=== PATIENT | female | born 1940 | race Caucasian/White ===

== ENCOUNTER 2016-09-16 10:16 | Inpatient (IN) | payer OTHER ==
[2016-09-16] VITALS (30 sets, daily range): BP systolic 102–141; BP diastolic 64–127
[~2016-09-16] VITALS: Ht 167.6 cm; Wt 94.9 kg
--- NOTE | ~2016-09-16 | DEA ---
[facility] [place] [address] SUMMARY Name: COOPER GARCIA Room #: 247-P [facility] IN M.R.#: [id number] Admission: 09/16/16 Attend Phys: Yoan Melendez DO Discharge: 09/18/16 Date of : 42 Report #: [id number] THIS REPORT FOR: //name// CC: Yoan Mazariegos Binh Morales DATE OF SERVICE: 09/18/2016 DATE OF : 09/18/2016. CAUSE OF : Respiratory arrest. HISTORY OF PRESENT ILLNESS: This is an elderly female who came to us as a transfer from an [facility] hospital. The patient had been at another hospital where she was being treated for pneumonia. The patient had influenza type A and possibly bacterial pneumonia as well. She was transferred to this hospital for further supportive care. When the patient got here, it was quite clear that she was in a great deal of distress. The patient was in renal failure as well and she was septic. The patient does have a history of COPD, which was complicating her issues as well. The patient had a medical directive which she said she did not want to have any lifesaving measures done. The patient was on BIPAP, which was not sufficient for supporting her care. The patient needed intubation, which was prohibited by her advanced directive. The patient was kept sedated. She was kept on BiPAP and the family later was ready for her to be withdrawn from care. She was given comfort measures and allowed to naturally in the ICU. Comorbidities included acute renal failure, acute kidney injury on chronic kidney disease, hypertension and diabetes mellitus type 2. <ELECTRONICALLY SIGNED> By: Mike Ahn DO 09/29/16 1827 1418 [id number] Mike Ahn DO /nt
--- NOTE | ~2016-09-16 | HC ---
[facility] [place] [address] CONSULTATION Name: COOPER GARCIA Room #: 247-P ADM IN M.R.#: [id number] Admission: 09/16/16 Attend Phys: Yoan Melendez DO Discharge: Date of : 42 Report #: [id number] THIS REPORT FOR: //name// CC: Yoan Stubbs PRIMARY CARE PHYSICIAN: Dr. Harrison. REFERRAL PHYSICIAN: Dr. Archie Hoffman. REASON FOR REFERRAL: Acute respiratory failure. HISTORY OF PRESENT ILLNESS: The patient is a 76-year-old white female who was transferred from [facility] for severe respiratory distress. A pulmonary consultation was requested. I do not have the records from the referring center. However, according to the records, patient was found to be positive for influenza A. With worsening respiratory status, the patient was transferred for further evaluation and management. The patient states that she had been sick recently. Otherwise, I am not able to obtain much history as patient is on a noninvasive positive pressure ventilation. A CT chest was performed earlier today, this shows bilateral multilobar infiltrates. PAST MEDICAL HISTORY: Is notable for history of COPD, diabetes mellitus type 2, hypertension, hypothyroidism, history of breast cancer, uterine cancer, chronic anemia, neuropathy, gastroesophageal reflux disease, chronic kidney disease with a baseline creatinine of 1.4, osteoarthritis and depression. PAST SURGICAL HISTORY: Includes lumpectomy, hysterectomy, appendectomy, cholecystectomy, history of multiple stones removal in the past. ALLERGIES: PENICILLIN, CODEINE and TRAMADOL, which causes dizziness and disorientation. MEDICATION: Lists are reviewed. Is in the MAR. FAMILY HISTORY: Noncontributory. SOCIAL HISTORY: The patient is a resident at the [facility], a long-term care unit. There is no history of recent tobacco or alcohol use. The patient had [facility] [address] [place] [address] CONSULTATION Name: COOPER GARCIA Room #: 247-P [facility] IN ..#: [id number] Admission: 09/16/16 Attend Phys: Yoan Melendez DO Discharge: Date of : 42 Report #: [id number] been utilizing a walker for ambulation up till May 2015 when she was last hospitalized at [facility]. REVIEW OF SYSTEMS: Is otherwise deferred as the patient is in acute respiratory distress. PHYSICAL EXAMINATION: GENERAL: She is alert, oriented in moderate distress. She appears tachypneic. Saturation 98%, respiratory rate is in 20s. VITAL SIGNS: Blood pressure is 110/60, pulse is around 80 beats per minute. HEENT: Normocephalic, atraumatic. NECK: Supple without any lymphadenopathy or thyromegaly. CHEST: Breath sounds are decreased bilaterally with coarse bilateral crackles. There is increase in upper airways breath sounds. Mild expiratory wheezes are noted. CARDIOVASCULAR: Heart sounds are distant. No obvious murmurs or gallop. Pulses are 2+/4+ bilaterally. BREASTS: Exam deferred. ABDOMEN: Obese, soft, nontender, no organomegaly or masses felt. RECTAL: Deferred. GENITOURINARY: Deferred. EXTREMITIES: There is no edema, cyanosis or clubbing. LABORATORY DATA: CT chest as mentioned above showing multilobar consolidation bilaterally. Procalcitonin is 0.7. Troponin is normal. Electrolytes: Sodium 137, potassium 4.2, chloride 104, CO2 is 20, BUN is 83, creatinine is 3.1, glucose is 98. SGOT is 93. Alkaline phosphatase is 136. WBC 28,900, hemoglobin is 8.9, platelets are normal without significant bandemia. Albumin 2.0. IMPRESSION: 1. Acute respiratory failure in this 76-year-old white female. Her CT chest revealed multilobar infiltrates. She was felt to be positive for influenza A recently. The patient appears as severe pneumonia, suspect either influenza pneumonia versus bacterial process. 2. Chronic obstructive pulmonary disease with presumed exacerbation. 3. Acute kidney injury/chronic kidney disease. Electrolytes shows some evidence of early onset metabolic acidosis. 4. Severe sepsis. 5. Marked leukocytosis of interest minimal bandemia. 6. Protein-calorie malnutrition, severe with an albumin of 2.0. 7. Diabetes mellitus type 2. 8. Hypertension. 9. Hypothyroidism. 10. Depression. [address] [address] CONSULTATION Name: COOPER GARCIA Room #: 247-P [facility] IN M.R.#: [id number] Admission: 09/16/16 Attend Phys: Yoan Melendez DO Discharge: Date of : 42 Report #: [id number] 11. Debility. RECOMMENDATION AND DISCUSSION: We will keep O2 saturation 92%, we will try noninvasive positive pressure ventilation with BiPAP as tolerated. Corticosteroids and bronchodilators will be started. Broad spectrum antibiotics has been started. This I will defer to Infectious Disease. DVT and GI prophylaxis will be addressed. Cultures have been ordered. The patient is at risk for developing worsening respiratory failure given degree of illness. Hopefully BiPAP would help. Thank you for the consultation. <ELECTRONICALLY SIGNED> By: You Matos MD 09/17/16 1308 1611 [id number] You Matos MD /nt
--- NOTE | ~2016-09-16 | HC ---
[facility] [place] [address] CONSULTATION Name: COOPER GARCIA Room #: 247-P ADM IN M.R.#: [id number] Admission: 09/16/16 Attend Phys: Yoan Melendez DO Discharge: Date of : 42 Report #: [id number] THIS REPORT FOR: //name// CC: Archie Morales REASON FOR CONSULTATION: Evaluate pneumonia, respiratory failure. HISTORY OF PRESENT ILLNESS: The patient is a 76-year-old residential resident who presented on 09/14/2016, to [facility] with respiratory distress, chills, and fever. There was no nausea, vomiting, or diarrhea. Initial white count was 26,000 with a right lung infiltrate on chest x-ray, screening identified influenza B. Treated with ceftriaxone, Levaquin, and Tamiflu, but has not improved. Now transferred to [facility] for further care. She remains short of breath. On high flow oxygen with a nonrebreather. She has had nonproductive cough. She was a poor historian. She had an indwelling Polanco catheter. There has been no travel. No history of tuberculosis. ALLERGIES: PENICILLIN, CODEINE, and TRAMADOL. MEDICATIONS: As noted on her JUL, now including Zyvox and meropenem. PAST MEDICAL HISTORY: Diabetes, hyperlipidemia, breast cancer, on tamoxifen; stroke, dementia, COPD, gastroesophageal reflux, pneumonia, chronic kidney disease, urolithiasis, anxiety, depression, hysterectomy, small-bowel obstruction, cholecystectomy, and appendectomy. FAMILY HISTORY: Noncontributory. SOCIAL HISTORY: Otherwise, noncontributory. REVIEW OF SYSTEMS: Negative other than as described above with no report of chest pain, abdominal pain, diarrhea, rash, or headache. PHYSICAL EXAMINATION: VITAL SIGNS: Afebrile, hemodynamically stable. She was short of breath and tachypneic with oxygen mask nonrebreather. EXTREMITIES: 2+ lower extremity edema. HEENT: Unremarkable. Had an eschar over her nares on the right side. Mouth, otherwise unremarkable other than dry. LUNGS: Coarse breath sounds in the bases bilaterally, mostly on the right. HEART: Regular, without murmur. ABDOMEN: Soft, nontender, no hepatosplenomegaly or mass. NEUROLOGIC: Nonfocal. IV site unremarkable. LABORATORY STUDIES: Blood cultures from [facility] negative to date. [address] [address] CONSULTATION Name: COOPER GARCIA Room #: 247-P [facility] IN M.R.#: [id number] Admission: 09/16/16 Attend Phys: Yoan Melendez DO Discharge: Date of : 41 Report #: [id number] Influenza antigen positive for . Urinalysis had 3+ protein. Here, her hemoglobin is 8.9, WBC 28.8 and platelet count 206,000. Previous chest x-ray had shown right lung infiltrate with diffuse interstitial infiltrates. The right lung infiltrate was perihilar in lower lobe. IMPRESSION: A 76-year-old with respiratory failure, on high flow oxygen following influenza B infection and I suspect secondary bacterial infection. In this setting, could potentially have MRSA. Also, would be concerned about a component of congestive heart failure. Recommend continuing IV antibiotic therapy and we will continue with Tamiflu. She will have followup chest x-ray, CT scan obtained. Also, check echocardiogram and BNP. <ELECTRONICALLY SIGNED> By: Rafael Catherine MD 09/17/16 1640 1419 [id number] Rafael Catherine MD /nt
--- NOTE | ~2016-09-16 | HC ---
[facility] [place] [address] CONSULTATION Name: COOPER GARCIA Room #: [facility] IN M.R.#: [id number] Admission: 09/16/16 Attend Phys: Yoan Melendez DO Discharge: 09/18/16 Date of : 42 Report #: [id number] THIS REPORT FOR: //name// CC: Archie Morales DATE OF SERVICE: 09/16/2016 ATTENDING PHYSICIAN: Dr. Navarro. REASON FOR CONSULTATION: Acute on chronic kidney disease. HISTORY OF PRESENT ILLNESS: A 76-year-old patient with known dementia on an Alzheimer's Unit and extended care facility, was admitted with cough and shortness of breath, progressive weakness, and was hospitalized for 2 days at [facility]. There she had worsening pulmonary infiltrates, shortness of breath, and rising creatinine and was transferred to [facility] where she was seen in consultation in the ICU. She has known CKD with a creatinine at this hospital last year of 1.6, longstanding diabetes and apparent proteinuria. Her creatinine has risen to 3.3 at [facility], 3.1 at our hospital this afternoon with a BUN of 83 and we are seeing her in consultation. PAST MEDICAL HISTORY: Taken extensively from the old medical chart, we also interviewed the patient who was of some help but so short of breath that she was having difficulty giving cogent answers and also apparently does have a history of cognitive impairment. She has a prior history of breast cancer, previous appendectomy, cholecystectomy, and hysterectomy, COPD, longstanding diabetes mellitus, Alzheimer's type dementia, previous CVA with seizures, history of anemia, and hypothyroidism. MEDICATIONS: Prior to admission were extensive and included Zanaflex b.i.d., albuterol inhaler, Synthroid 75 mcg daily, Keppra 250 mg b.i.d., meclizine p.r.n., amlodipine 5 mg daily, Flomax 0.4 mg daily, vitamin D3 5000 units daily, Plavix 75 mg daily, Levemir insulin, Cymbalta 90 mg total daily, famotidine 20 mg daily, allopurinol 100 mg daily, clonidine 0.1 mg once a day, NovoLog sliding scale insulin, naproxen 220 mg 2 tablets twice daily, alendronate 70 mg weekly, tamoxifen 20 mg daily, metoprolol tartrate 50 mg b.i.d., iron, Lipitor 10 mg daily, Milk of Magnesia p.r.n. FAMILY HISTORY: Taken from the previous charts, noncontributory. SOCIAL HISTORY: Now with apparent chronic cognitive impairment on an Alzheimer's Unit. No substantial [place] [address] CONSULTATION Name: COOPER GARCIA Room #: 247-P [facility] IN M.R.#: [id number] Admission: 09/16/16 Attend Phys: Yoan Melendez DO Discharge: 09/18/16 Date of : 42 Report #: [id number] REVIEW OF SYSTEMS: Cannot be taken due to the patient's difficulty with giving a history on her cognitive difficulties. PHYSICAL EXAMINATION: GENERAL: This is a quite tachypneic ill-appearing patient seen in the ICU. SKIN: Unremarkable. SKELETAL: Somewhat obese, well-developed, well-nourished. EYES: Extraocular movements are full. Vision is intact. No scleral icterus. Hearing is intact. Mucous membranes dry. NECK: Veins are flat. CHEST: Shows diffuse wheezes and rhonchi. HEART: Regular but distant. ABDOMEN: Somewhat quiet, nontender. EXTREMITIES: Show 1+ generalized peripheral edema. NEUROLOGIC: Grossly intact, moving all extremities. LABORATORY DATA: Sodium 137, potassium 4.2, chloride ____, bicarbonate 20, creatinine 3.1, BUN 83, calcium is 6.5. AST 93, ALT 52, albumin 2.0. White blood count is 28.9 with a hemoglobin of 8.9, platelets of 206, influenza B positive. ASSESSMENT AND PLAN: 1. Diffuse patchy pneumonia with positive influenza B. She has been treated with aggressive antibiotics for secondary pneumonia. She has a very bad case of influenza B. She is in respiratory distress and likely will need intubation, but she is also a DNR. I am not sure if that is going to be included in the management given her underlying dementia and this will certainly have to be discussed with her family, which are the primary DPOAs. 2. Acute on chronic kidney disease. She obviously has underlying chronic kidney disease, probably diabetic nephropathy, although that ____. She did have a sonogram, which showed bilateral nephrolithiasis when she was here last year. In any event, she likely would benefit from some IV fluids and I am going to give those and add a little bicarbonate there as well. 3. Underlying dementia. 4. 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 5. History of cerebrovascular accident. 6. History of seizure disorder. 7. Previous history of breast cancer with possible osseous metastasis on x-ray. <ELECTRONICALLY SIGNED> By: Manuel Lauren MD 09/26/16 1114 1754 0311 Manuel Lauren MD /nt
--- NOTE | ~2016-09-16 | 2DMMODE ---
[facility] [address] [place] [address] 2 D/M-MODE ECHOCARDIOGRAM Name: COOPER GARCIA Room #: 247-P [facility] IN M.R.#: [id number] Admission: 09/16/16 Attend Phys: Yoan Melendez, Discharge: Date of : 42 Date of Service: 09/17/16 1231 Report #: [id number] THIS REPORT FOR: //name// APPROVED REPORT Study performed: 09/17/2016 07:15:42 EXAM: Comprehensive 2D, Doppler, and color-flow Echocardiogram Patient Location: Bedside Room #: 247 Blood Pressure: 143/76 mmHg HR: 98 bpm Other Information Study Quality: FairPoor Technically limited study due to Poor patient compliance, restricted mobility, obesity. Not all measurements taken. Patient in ICU on CPap. Indications Bilateral infiltrates, respiratory failure. Hx: DM, HTN, HLP, COPD, CVA 2D Dimensions RVDd: 28.31 mm LVEF(%): 55.75 (>50%) IVSd: 12.66 (7-11mm) LVDd: 42.91 mm PWd: 12.70 (7-11mm) LVDs: 30.54 (25-40mm) Aortic Root: 33.29 mm Clark's LVEF: 55.75 % Volumes Left Atrial Volume (Systole) Single Plane 4CH: 50.08 mL Single Plane 2CH: 55.45 mL LA ESV Index: 29.00 mL/m2 Aortic Valve AoV Peak Guillermo.: 1.92 m/s AO Peak Gr.: 14.78 mmHg Mitral Valve [facility] [address] [place] [address] 2 D/M-MODE ECHOCARDIOGRAM Name: COOPER GARCIA Room #: 247-P [facility] IN ..#: [id number] Admission: 09/16/16 Attend Phys: Yoan Melendez, Discharge: Date of : 42 Date of Service: 09/17/16 1231 Report #: [id number] E/A Ratio: 0.8 MV Decel. Time: 141.04 ms MV E Max Guillermo.: 1.24 m/s MV A Guillermo.: 1.52 m/s MV PHT: 40.90 ms Pulmonary Valve PV Peak Guillermo.: 1.10 m/s PV Peak Gr.: 4.88 mmHg Tricuspid Valve TR Peak Guillermo.: 2.70 m/s RAP Estimate: 5.00 mmHg TR Peak Gr.: 29.27 mmHg RVSP: 34.00 mmHg Left Ventricle The left ventricle is normal size. Mild concentric left ventricular hypertrophy. Left ventricular systolic function appears hyperdynamic. Cannot rule out CLARISSE with mild LVOT peak gradient of 31mmHg. LVEF is 65-70%. Grade I - abnormal relaxation pattern. Right Ventricle The right ventricle appears normal size. The right ventricular systolic function appears normal. Atria The left atrium size is normal. The right atrium size is normal. Aortic Valve The aortic valve is not well visualized. No aortic regurgitation is present. There is no aortic valvular stenosis. Mitral Valve Moderate mitral annular calcification. Mild mitral regurgitation. Tricuspid Valve The tricuspid valve is normal in structure. There is mild tricuspid regurgitation. The right atrial pressure is estimated at 5 mmHg. There is mild pulmonary hypertension with an estimated PAP of 34mmHg. Pulmonic Valve Pulmonic valve is not well visualized. Great Vessels The aortic root is normal in size. Ascending aorta is not well [facility] [address] [place] [address] 2 D/M-MODE ECHOCARDIOGRAM Name: COOPER GARCIA Room #: 247-P [facility] IN M.R.#: [id number] Admission: 09/16/16 Attend Phys: Yoan Melendez, Discharge: Date of : 42 Date of Service: 09/17/16 1231 Report #: [id number] visualized. IVC is normal in size and collapses >50% with inspiration. Pericardium There is no pericardial effusion. <Conclusion> The left ventricle is normal size. LVEF is 65-70%. The aortic valve is not well visualized. Moderate mitral annular calcification. Mild mitral regurgitation. The tricuspid valve is normal in structure. There is mild tricuspid regurgitation. The right atrial pressure is estimated at 5 mmHg. There is mild pulmonary hypertension with an estimated PAP of 34mmHg. <ELECTRONICALLY SIGNED> By: Farooq Maynard MD 09/17/16 1231 1231 1231 Farooq Maynard MD /INF
[~2016-09-16 10:16] MED LIST: ALENDRONATE SOD70 MG PO; ALEVE220 MG PO; ALLOPURINOL 10100 M1 PO; ATORVASTATIN CA40 MG PO; CENTRUM SILVER1 EAC4 PO; COZAAR 50 MG TA50 M2 PO; CYMBALTA60 MG PO; DUONEB 2.5-0.5 M3 ML INH; FLOMAX0.4 MG PO; IRON325 PO; KEPPRA 500 MG500 M1 PO; LEVAQUIN 500 M500 M2 PO; LEVEMIR SUBQ; LEVOTHYROXINE0.05 MG PO; LIQUITUSS200 MG/5 M PO; LOPRESSOR50 PO; NOLVADEX20 MG PO; NOVOLOG100 UNIT/1 SUBQ; PLAVIX 75 MG TA75 M1 PO; PROTONIX40 M1 PO; ROBITUSSIN100 MG/53 PO; TRADJENTA5 MG PO; TYLENOL325 MG PO; VITAMIN D3400 UNIT PO
[2016-09-16 13:38] LABS: HEMATOCRIT 26.7 % (37.0-47.0); HEMOGLOBIN 8.9 gm/dL (12.0-15.0); MCH 29.2 pg (26.0-34.0); MCHC 33.4 g/dL (28.0-37.0); MCV 87.2 fL (80.0-100.0); PLATELET COUNT 206 thou/uL (150-400); RBC 3.06 mil/uL (4.20-5.00); RDW 15.3 % (10.5-14.5); WBC 28.9 thou/uL (4.0-11.0)
[2016-09-16 14:14] LABS: CALCIUM 6.5 mg/dL (8.5-10.1); CREATININE 3.1 mg/dL (0.6-1.0); POTASSIUM 4.2 mmol/L (3.5-5.1); TOTAL BILIRUBIN 0.4 mg/dL (<0.1-1.0); TOTAL PROTEIN 6.5 g/dL (6.4-8.2)
[2016-09-16 14:49] LABS: MANUAL DIFF YES
[2016-09-16 15:15] LABS: ABSOLUTE NEUTROPHILS 25.7 thou/uL (1.4-8.2); PLATELET ESTIMATE NORMAL; TOTAL CELL COUNT 100
[2016-09-16 17:32] LABS: ABG SAMPLE TYPE ARTERIAL; BE(vivo) -8.2 mmol/L (-2 to +3); LACTATE 1.45 mmol/L (0.5-2.0); O2Hb 85.1 % (92.0-98.0); PCO2 33.6 mmHg (35.0-45.0); sO2 84.3 % (92.0-98.0)
[2016-09-16 17:33] LABS: PO2 51.6 mmHg (80.0-100.0); STICK SITE R.RADIAL; pH 7.322 (7.360-7.450)
[2016-09-17] VITALS (23 sets, daily range): BP systolic 102–147; BP diastolic 51–95
[2016-09-17 04:05] LABS: HEMATOCRIT 28.2 % (37.0-47.0); HEMOGLOBIN 9.2 gm/dL (12.0-15.0); MCHC 32.6 g/dL (28.0-37.0); MCV 88.9 fL (80.0-100.0); RBC 3.17 mil/uL (4.20-5.00); RDW 15.3 % (10.5-14.5); WBC 27.9 thou/uL (4.0-11.0)
[2016-09-17 04:23] LABS: ALBUMIN 2.1 g/dL (3.4-5.0); CALCIUM 6.8 mg/dL (8.5-10.1); CREATININE 3.2 mg/dL (0.6-1.0); PHOSPHORUS 6.4 mg/dL (2.5-4.9); POTASSIUM 4.9 mmol/L (3.5-5.1)
[2016-09-17 06:09] LABS: URINE CREATININE-RANDOM* 26.7 mg/dL (Not Estab.); URINE PROTEIN-RANDOM* 30.4 mg/dL (Not Estab.)
[2016-09-18] VITALS (15 sets, daily range): BP systolic 88–145; BP diastolic 46–84
[2016-09-18 05:00] LABS: ALBUMIN 2.3 g/dL (3.4-5.0); CREATININE 3.8 mg/dL (0.6-1.0); PHOSPHORUS 8.3 mg/dL (2.5-4.9); POTASSIUM 5.1 mmol/L (3.5-5.1)
[2016-09-18 05:22] LABS: CALCIUM 5.9 mg/dL (8.5-10.1)
[2016-09-18 22:09] LABS: INFLUENZA B Positive (Negative); METAPNEUMOVIRUS Negative (Negative)
== END 2016-09-18 16:07 | DRG 871 ==
LOC: 2N 10:16 → ICU 12:15
PROVIDERS: Hospitalist; Internal Medicine; Internal Medicine Nephrology; Internal Medicine Pulmonary Disease; Specialist
PROC: 5A09357 Assistance with Respiratory Ventilation, Less than 24 Consecutive Hours, Continuous Positive Airway Pressure (ICD-10-PCS; principal; 2016-09-16)
DX: A41.9 Sepsis, unspecified organism (principal); J11.08 Influenza due to unidentified influenza virus with specified pneumonia; J96.01 Acute respiratory failure with hypoxia; G93.41 Metabolic encephalopathy; J18.9 Pneumonia, unspecified organism; J44.1 Chronic obstructive pulmonary disease with (acute) exacerbation; J44.0 Chronic obstructive pulmonary disease with (acute) lower respiratory infection; N17.9 Acute kidney failure, unspecified; E46 Unspecified protein-calorie malnutrition; E87.1 Hypo-osmolality and hyponatremia; E78.5 Hyperlipidemia, unspecified; K21.9 Gastro-esophageal reflux disease without esophagitis; F32.9 Major depressive disorder, single episode, unspecified; F41.9 Anxiety disorder, unspecified; G30.9 Alzheimer's disease, unspecified; F02.80 Dementia in other diseases classified elsewhere, unspecified severity, without behavioral disturbance, psychotic disturbance, mood disturbance, and anxiety; E03.9 Hypothyroidism, unspecified; R65.20 Severe sepsis without septic shock; E83.51 Hypocalcemia; E11.22 Type 2 diabetes mellitus with diabetic chronic kidney disease; I12.9 Hypertensive chronic kidney disease with stage 1 through stage 4 chronic kidney disease, or unspecified chronic kidney disease; N18.3 Chronic kidney disease, stage 3 (moderate); G40.909 Epilepsy, unspecified, not intractable, without status epilepticus; E11.42 Type 2 diabetes mellitus with diabetic polyneuropathy; M19.90 Unspecified osteoarthritis, unspecified site; E83.39 Other disorders of phosphorus metabolism; Z66 Do not resuscitate; Z88.0 Allergy status to penicillin; Z88.6 Allergy status to analgesic agent; Z85.3 Personal history of malignant neoplasm of breast; Z86.73 Personal history of transient ischemic attack (TIA), and cerebral infarction without residual deficits; Z90.710 Acquired absence of both cervix and uterus; Z90.49 Acquired absence of other specified parts of digestive tract; Z85.42 Personal history of malignant neoplasm of other parts of uterus; Z68.33 Body mass index [BMI] 33.0-33.9, adult; Z51.5 Encounter for palliative care
CPT/HCPCS: 10078